=== PATIENT | male | born 1950 | race Caucasian/White ===

== ENCOUNTER 2017-08-26 16:21 | Inpatient (IN) ==
[2017-08-26 17:05] LABS: Basophils % 0.2 %; Hematocrit 48.7 % (37.5-50.1); Hemoglobin 16.2 g/dL (12.9-16.9); Immature Granulocytes % 1.5 % (0-4); Lymphocytes % 7.7 %; Mean Corpuscular HGB Conc 33.3 g/dL (31.6-35.5); Mean Corpuscular Hemoglobin 30.9 pg (28.0-33.3); Mean Corpuscular Volume 92.9 fL (83.0-100.0); Monocytes # 0.1 K/mcL (0.0-1.3); Monocytes % 1.1 %; Neutrophils # 11.6 K/mcL (1.6-8.9); Platelet Count 210 K/mcL (140-400); Red Blood Count 5.24 M/mcL (4.19-5.50); Segmented Neutrophils % 89.5 %
[2017-08-26 17:18] LABS: Calcium 9.5 mg/dL (8.6-10.3); Potassium 4.3 mEq/L (3.5-5.1)
[2017-08-26 17:22] LABS: Troponin I 0.04 ng/mL (< 0.04)
--- NOTE | 2017-08-26 17:32 | Emergency Department Note ---
Disposition Clinical Impression: RONALD (acute kidney injury) Community acquired pneumonia Qualifiers: Laterality: right Lung location: lower lobe of lung Qualified Code(s): J18.1 - Lobar pneumonia, unspecified organism Sepsis Qualifiers: Sepsis type: sepsis due to unspecified organism Qualified Code(s): A41.9 - Sepsis, unspecified organism Disposition: Admitted As Inpatient Condition: Fair Referrals: Yanna Sommer MD [Primary Care Provider] - Forms: ED Satisfaction Letter General Adult HPI - General Chief complaint: ED Shortness of Breath/Dyspnea Stated complaint: flu-like complications Time Seen by Provider: 08/26/17 16:41 Source: patient, family Limitations: no limitations Nursing Notes Reviewed: Yes Vital Signs Reviewed: Yes - History of Present Illness HPI Narrative: 66-year-old male presented to the emergency department complaining of fevers and chills and body aches. Patient states this been going on for about 4 or 5 days. He was seen by primary care physician approximately 3 days ago he did do a flu swab was negative but still sent him home with Tamiflu. Patient states he has not felt any better. His only medical condition he has is that he smokes otherwise does not take any medication. State patient says he is normally one pack-a-day smoker. In the last 5 days is only had 1 cigarette. Said this is very abnormal for him. He is maybe complaining of a cough for the last 2 days but prior to that does not have a cough. He otherwise has no complaints. He said the fever has been 102 and has been being controlled with Tylenol. Last Tylenol he took was at approximately 4:00 PM. They said he has been nauseous but no vomiting. Patient otherwise has no belly pain. He said his whole body just aches. He said he is very cold. It is constantly shaking. Patient has no other complaints including no headaches, blurry vision, neck pain, back pain, chest pain, shortness of breath, abdominal pain, pain with urination, changes in bowel movements, pain or to 90 arms or leg. Pain Scale: 5 - Related Data Home Medications Medication Instructions Recorded Confirmed Acetaminophen [Tylenol] 650 mg PO Q6H PRN 08/26/17 08/26/17 Oseltamivir [Tamiflu] 75 mg PO BID 08/26/17 08/26/17 Allergies Allergy/AdvReac Type Severity Reaction Status Date / Time No Known Allergies Allergy Verified 08/26/17 16:28 Review of Systems: 10 point review of systems done and negative unless otherwise stated in the history of present illness. All systems ED: reviewed and negative except as stated. Review of Systems: As Per HPI Past Medical History - Past Medical History Attestation: Yes The following information was validated with the patient. Source: patient Medical history: Reports: other Surgical history: Reports: no surgical history Psychiatric history: Reports: no psych history - Social History Smoking Status: Current every day smoker Smokeless Tobacco Status: No Alcohol use: Reports: none Drug use: Reports: none Physical Exam - General Limitations: no limitations General appearance: alert, in no apparent distress, other (Patient does have noticeable Rigor's on examination.) - Head Head exam: atraumatic, normocephalic, normal inspection - Eye Eye exam: Present: normal appearance, PERRL, EOMI - ENT ENT exam: normal exam, normal oropharynx, mucous membranes moist - Chest Chest inspection: Present: normal inspection, symmetric chest wall rise - Respiratory Respiratory exam: Present: normal lung sounds bilaterally. Absent: respiratory distress, wheezes, accessory muscle use, prolonged expiratory phase - Cardiovascular Cardiovascular exam: Present: normal rhythm, tachycardia, normal heart sounds - Abdominal Exam Abdominal exam: Present: soft, Non-Tender. Absent: tenderness, distention, guarding, rebound, rigidity - Extremities Exam Extremities exam: Present: normal inspection, full ROM. Absent: tenderness, pedal edema - Expanded Lower Extremity Exam Neurovascular/Tendon exam: Present: normal capillary refill. Absent: pulse deficit, motor deficit, sensory deficit, tendon deficit - Back Exam Back exam: Present: normal inspection, full ROM. Absent: tenderness, CVA tenderness (R), CVA tenderness (L) - Neurological Exam Neurological exam: Present: alert, oriented X3 - Expanded Neurological Exam Coma Scale Eye Opening: Spontaneous Coma Scale Motor Response: Obeys Commands Coma Scale Verbal Response: Oriented Coma Scale Total: 15 - Skin Skin exam: Present: warm, dry, intact, normal color Course Course Narrative: 66-year-old male presented to the emergency department with fever chills and all over not feeling well. He also [place]. We will do chest x-ray, EKG patient does meet surgical criteria so we will go ulcers labs including lactate , CBC, BMP, time and lactate, chest x-ray and EKG. Due to patient also having Reiger's we will get CT of the head to rule out any kind of cranial pathology. We will give patient Motrin for his fever will give him 2 L of IV fluid at the 30 mL/kg to fluid resuscitate him. Patient most likely will be admitted to the hospital. Vital Signs Temperature 98.8 F 08/26/17 16:23 Pulse Rate 113 08/26/17 16:23 Respiratory Rate 22 08/26/17 16:23 Blood Pressure 108/71 08/26/17 16:23 O2 Sat by Pulse Oximetry 96 08/26/17 16:23 Temperature 98.8 F 08/26/17 16:23 Pulse Rate 116 08/26/17 18:29 Respiratory Rate 14 08/26/17 18:29 Blood Pressure 111/73 08/26/17 18:29 O2 Sat by Pulse Oximetry 93 08/26/17 18:29 Oxygen Delivery Oxygen Delivery Room Air Medical Decision Making - MDM Narrative Medical decision making narrative: 66-year-old male presented with fever and chills and body aches. Chest x-ray came back showing most likely pneumonia. We will treat him with Rocephin and Levaquin. Patient's did get 2 L of IV fluids. We did give him Zofran as well as ibuprofen to help with the fever. Patient's nausea is under control with the Zofran. Due to patient needing IV antibiotics and his pneumonia and not feeling well we feel admission IV antibiotics as needed. Patient also does have a new acute kidney injury. We gave him IV fluids which will help with that. We will give him aspirin due to him having an elevated troponin. Patient also has a mild leukocytosis. Although should normalize once his IV antibiotics as well as the fluids. Patient is okay with this plan. I spoke with the hospitalist who agreed to admit the patient to their service. Patient is admitted in stable condition. This documentation is done with the assistance of Dragon dictation. Despite efforts made to ensure accuracy, there may be inaccuracies in air pumper or spelling and typographical errors. I examined this patient and my medical decision-making was reviewed with the Resident Physician. I agree with the documented findings, disposition and treatment plan as described except to the extent set forth below. Patient seen and evaluated by Dr. Taylor and myself, I agree with his evaluation management plan, supervise care the patient's stay. Patient presents today having several days of cough and wheezing and weakness. He said he is not wheezing now these been coughing up a lot of sputum he has had pneumonia in the past along time ago. He is a smoker. He is on Tamiflu those family said both his flu test by his doctors were negative. He is getting some a little bit of alterations in his mental status at times he has no meningeal signs of edema and no scleral icterus. He is coughing here but no wheezing. We will order a chest x-ray antibiotics he meets SIRS criteria and he will need admission. Family is in agreement with this plan. Chest X-Ray 08/26/17 16:29 IMPRESSION: Right lower lobe pneumonia. Follow-up imaging is recommended after treatment to ensure resolution. D/ / Yohannes Sanchez MD / Yohannes Sanchez MD Interpreting Provider: Yohannes Sanchez MD 1754 hrs.: He does have a right lower lobe pneumonia or a start him on antibiotics for the pneumonia and sepsis criteria steroids fluids and admission. Family is in agreement with this plan. 1820 hrs.: Patient has AKA I, his troponins positive these had no chest pain. We will give him aspirin I think that is due to his renal insufficiency. His white count [place] 12,000 status and leukocytosis. Admission was sepsis criteria his lactate elevated he is getting fluids he will be admitted to the hospitalist IV and a bikes or running and he will need a repeat lactate and 4 hours. Patient and his family are updated. Patient's critical care time excluding separately billable procedures is 40 minutes. - Medical Records Medical records reviewed: Yes I reviewed the patient's medical records. - Lab Data Lab results reviewed: Yes I reviewed the patient's lab results. Result diagrams: 08/26/17 16:48 08/26/17 16:48 Lab Results 08/26/17 08/26/17 08/26/17 Range/Units 16:48 16:48 16:48 WBC 12.9 H (4.3-11.1) K/mcL RBC 5.24 (4.19-5.50) M/mcL Hgb 16.2 (12.9-16.9) g/dL Hct 48.7 (37.5-50.1) % MCV 92.9 (83.0-100.0) fL MCH 30.9 (28.0-33.3) pg MCHC 33.3 (31.6-35.5) g/dL RDW 13.0 (11.5-14.5) % Plt Count 210 (140-400) K/mcL MPV 12.0 (9.4-12.4) fL Immature Gran % 1.5 (0-4) % Seg Neutrophils % 89.5 % Lymphocytes % 7.7 % Monocytes % 1.1 % Eosinophils % 0.0 % Basophils % 0.2 % Neutrophils # 11.6 H (1.6-8.9) K/mcL Lymphocytes # 1.0 (0.6-4.6) K/mcL Monocytes # 0.1 (0.0-1.3) K/mcL Eosinophils # 0.0 (0.0-0.6) K/mcL Basophils # 0.0 (0.0-0.2) K/mcL Sodium 130 L (136-145) mEq/L Potassium 4.3 (3.5-5.1) mEq/L Chloride 96 L (98-107) mEq/L Carbon Dioxide 21 L (23-29) mEq/L BUN 42 H (8-23) mg/dL Creatinine 2.28 H (0.70-1.30) mg/dL Est GFR ( Amer) 35 L (> 60) Est GFR (Non-Af Amer) 29 L (> 60) BUN/Creatinine Ratio 18 (6-26) Glucose 137 H (70-105) mg/dL Calculated Osmolality 283 (280-300) Lactic Acid 2.7 H (0.5-2.2) mmol/L Calcium 9.5 (8.6-10.3) mg/dL Troponin I 0.04 H* (< 0.04) ng/mL B-Natriuretic Peptide (Less than 100) pg/mL 08/26/17 Range/Units 16:48 WBC (4.3-11.1) K/mcL RBC (4.19-5.50) M/mcL Hgb (12.9-16.9) g/dL Hct (37.5-50.1) % MCV (83.0-100.0) fL MCH (28.0-33.3) pg MCHC (31.6-35.5) g/dL RDW (11.5-14.5) % Plt Count (140-400) K/mcL MPV (9.4-12.4) fL Immature Gran % (0-4) % Seg Neutrophils % % Lymphocytes % % Monocytes % % Eosinophils % % Basophils % % Neutrophils # (1.6-8.9) K/mcL Lymphocytes # (0.6-4.6) K/mcL Monocytes # (0.0-1.3) K/mcL Eosinophils # (0.0-0.6) K/mcL Basophils # (0.0-0.2) K/mcL Sodium (136-145) mEq/L Potassium (3.5-5.1) mEq/L Chloride (98-107) mEq/L Carbon Dioxide (23-29) mEq/L BUN (8-23) mg/dL Creatinine (0.70-1.30) mg/dL Est GFR ( Amer) (> 60) Est GFR (Non-Af Amer) (> 60) BUN/Creatinine Ratio (6-26) Glucose (70-105) mg/dL Calculated Osmolality (280-300) Lactic Acid (0.5-2.2) mmol/L Calcium (8.6-10.3) mg/dL Troponin I (< 0.04) ng/mL B-Natriuretic Peptide 33 (Less than 100) pg/mL - Radiology Data Radiology results reviewed: Yes I reviewed the patient's radiology results. - EKG Data EKG #1 EKG attestation: Yes I reviewed and interpreted this EKG. EKG results narrative: EKG done at [facility] a review myself and attending shows sinus tachycardia rate of 116, NV interval 142, QRS 83, QTC 357 with a normal axis. There is no acute ST changes no acute T-wave changes no other signs of ischemia. No heartstring, hypertrophy, heart block. No WPW/Brugada syndrome. No old EKG to compare with EKG shows normal: sinus rhythm
[2017-08-26] MEDS ORDERED: Ibuprofen 600 MG TABLET PO ONE (17:34)
[2017-08-26] MEDS ORDERED: 0.9 % Sodium Chloride 1,000 ML IVC ONE ×2 (17:34→17:51)
[2017-08-26] MEDS ORDERED: Ondansetron 4 MG/2 ML VIAL IVP ONE (17:35)
[2017-08-26] MEDS ORDERED: Levofloxacin 750 MG/150 ML 750 MG/150 ML BAG IVPB ONE (17:47)
[2017-08-26] MEDS ORDERED: cefTRIAXone 1,000 MG in Water for inj. (sterile) 20 ML 10 ML IVPB ONE (17:47)
[2017-08-26] MEDS ORDERED: Aspirin 81 MG TAB.CHEW PO ONE (18:34)
[2017-08-26 19:43] LABS: Bilirubin,Urine Moderate (Negative); Blood,Urine Moderate (Negative); Clarity,Urine Turbid (Clear); Glucose,Urine (UA) Normal (Normal); Ketones,Urine Trace mg/dL (Negative); Leukocyte Esterase,Urine Trace (Negative); Nitrite,Urine Negative (Negative); Protein,Urine 100 mg/dL (Neg-Trace); Specific Gravity,Urine > 1.030 (1.010-1.025)
[2017-08-26 19:46] LABS: Bacteria,Urine None Seen per hpf (None-Few); RBC,Urine 0-3 per hpf (0-3); Squamous Epithelial Cell,Urine Many per lpf (None-Few)
[2017-08-26 19:47] LABS: Color,Urine Dark Yellow (Yellow)
[2017-08-26 19:55] LABS: Granular Casts,Urine Moderate per lpf (None Seen)
[2017-08-26] MEDS ORDERED: Naloxone 0.4 MG/ML INJ IVP PRN (20:10)
[2017-08-26] MEDS ORDERED: Ondansetron 4 MG/2 ML VIAL IVP PRN (20:23)
--- NOTE | 2017-08-26 20:31 | Internal Med History&Physical ---
<Shola Allred R - Last Filed: 08/26/17 20:29> Date of Encounter: 08/26/17 Time of Encounter: 19:40 Assessment and Plan (1) Sepsis Status: Acute SIRS criteria: HR 113, RR 22, leukocytosis 12.9. Source of infection RLL pneumonia No hypotension. Lactic acid 2.4. Reported temp at home of 102, tylenol just prior to arrival in ED CXR shows RLL pneumonia. Head CT shows no acute abnormality, mild chronic small vessel disease CBC shows leukocytosis, no anemia. BMP shows hyponatermia (130), metabolic acidosis with low CO2 (21), and elevated Cr (2.28, with baseline around 1.0) UA positive protein, ketones, blood, esterase, 5-15 white blood cells, and granular cast. however, patient does not have any urinary symptoms Repeat flu swab is negative Patient received 2 L normal saline emergency department, and initial doses of Levaquin and Rocephin Will admit to telemetry, continue IV fluids, Levaquin, and Rocephin Blood cultures pending Qualifiers: Sepsis type: sepsis due to unspecified organism Qualified Code(s): A41.9 - Sepsis, unspecified organism (2) Community acquired pneumonia Status: Acute Chest x-ray shows right lower lobe pneumonia Treatment fluids, Levaquin, and Rocephin as above Qualifiers: Laterality: right Lung location: lower lobe of lung Qualified Code(s): J18.1 - Lobar pneumonia, unspecified organism (3) RONALD (acute kidney injury) Status: Acute Creatinine 2.28, with a baseline around 1.0 This is likely secondary to dehydration, will continue IV fluids Avoid nephrotoxic drugs, avoid NSAIDs, renally dose medications as needed Repeat urinalysis and continue to monitor kidney function (4) Hyponatremia Status: Acute Sodium 130, likely secondary to dehydration. Received 2 L normal saline emergency department We will recheck sodium level. Continue IV fluids for now (5) Elevated troponin Status: Acute Troponin 0.04. Patient denies any chest pain ECG shows sinus tachycardia with heart rate of 116, with no ST changes Likely demand ischemia secondary to sepsis and pneumonia We will trend troponins 3 (6) DVT prophylaxis Status: Acute Subcutaneous heparin Internal Medicine - H&P: HPI Chief complaint: flu-like symptoms Admitted From: Emergency Dept History of present illness: Mr. Wang is a 66 year old male with PMH of tobacco use, as the ED with a 4-5 day history of fever, chills, body aches, and generalized weakness. Associated symptoms include a productive cough, diaphoresis, shakiness, nausea, vomiting, and diarrhea. He states that he saw his PCP a couple days ago and flu swab was negative, but was treated with Tamiflu. He reports no improvement on Tamiflu. He reports that his fever has been up to 102 but it has been responding to Tylenol. He denies any headaches, blurred vision, focal weakness, chest pain, dyspnea, orthopnea, pleuritic pain, abdominal pain, back pain, hematochezia, melena, dysuria, increased frequency, hematuria, or leg pain/swelling. Past Med Surg Social Fam HX - Past Medical History Medical history: other (nephrolithiasis) Psychiatric history: no psych history - Past Surgical History Surgical History: orthopedic, other - Social History Smoking Status: Current every day smoker Smokeless Tobacco Status: No Alcohol use: none Drug use: none - Family History Mother Living Status: Hx Family Cancer: Yes (stomach cancer) Father Living Status: Hx Family Cardiac Disorders: Yes Internal Medicine - H&P: Meds Acetaminophen [Tylenol] 650 mg PO Q6H PRN 08/26/17 [History] Cyanocobalamin (Vitamin B-12) [Vitamin B12] 1,000 mcg PO DAILY #10 tablet [Rx] GuaiFENesin ER [Mucinex] 600 mg PO BID PRN #20 tbbp.12hr 08/31/17 [Rx] levoFLOXacin [Levaquin] 750 mg PO DAILY #6 tablet 08/31/17 [Rx] 3 Allergy/AdvReac Type Severity Reaction Status Date / Time No Known Allergies Allergy Verified 08/26/17 16:28 All Systems PM: A 10-system review of systems was performed and is negative for pertinent findings except as documented above in the HPI. - Constitutional Vitals: Temp Pulse Resp BP Pulse Ox 98.9 F 69 21 108/69 95 08/26/17 20:12 08/26/17 20:12 08/26/17 20:12 08/26/17 20:12 08/26/17 20:12 General appearance: Present: mild distress, A&O X 3, answers questions appropriately - Head Head exam: Present: atraumatic, normocephalic - Eye Eye exam: Present: EOMI, PERRL, conjuntiva pink, sclera anicteric Pupils: Present: PERRL - ENT ENT exam: Present: mucous membranes dry - Neck Neck exam general surgery: Present: supple, trachea midline. Absent: lymphadenopathy - Respiratory Respiratory exam: Present: CTAB. Absent: accessory muscle use, rales, rhonchi, wheezes - Cardiovascular Cardiovascular exam: Present: +S1, +S2, tachycardia (regular rhythm). Absent: diastolic murmur, systolic murmur - GI/Abdominal GI/Abdominal exam: Present: normal bowel sounds, soft, no peritoneal signs. Absent: distended, tenderness - Extremities Exam Extremities exam: Present: normal capillary refill, warm, radial pulses palpable and symmetrical. Absent: calf tenderness, cyanotic, pedal edema - Neurological Exam Neurological exam: Present: CN II-XII intact, oriented X3, no focal deficits. Absent: facial droop, speech deficit - Skin Skin exam: Present: diaphoretic, intact Internal Med - H&P Results - Labs CBC & Chem 7: 08/26/17 16:48 08/26/17 16:48 <Mackenzie Dodd Z - Last Filed: 09/16/17 04:35> Date of Encounter: 08/29/17 Internal Medicine - H&P: HPI History of present illness: Mr. Wang is a 66 year old male All Systems PM: A 10-system review of systems was performed and is negative for pertinent findings except as documented above in the HPI. - Constitutional Vitals: Temp Pulse Resp BP Pulse Ox 98.5 F 81 16 136/76 95 08/31/17 07:16 08/31/17 07:16 08/31/17 07:33 08/31/17 07:16 08/31/17 08:15 Internal Med - H&P Results - Labs CBC & Chem 7: 08/31/17 03:15 08/31/17 03:15 - Attending Attestation I personally and independently interviewed and examined the patient, and I reviewed the patient's medical record. I am in agreement with the residents assessment and proposed treatment plan. I discussed my findings and recommendation with the patient and answer his questions. The patient's medical records were edited to accurately reflect this encounter.
[2017-08-26] MEDS: Ipratropium/Albuterol Neb 3 ML IH SCH (21:12)
[2017-08-26] MEDS: *HR* Heparin 5,000 UNIT/ML VIAL SQ SCH (22:10)
[2017-08-26] MEDS: 0.9 % Sodium Chloride 1,000 ML IVC SCH (22:11)
[2017-08-26 22:19] LABS: Sodium 130 mEq/L (136-145)
[2017-08-26 22:20] LABS: Troponin I < 0.03 ng/mL (< 0.04)
[2017-08-27] MEDS: traMADol 50 MG TABLET PO PRN ×2 (03:35→15:48)
[2017-08-27] MEDS: Ipratropium/Albuterol Neb 3 ML IH SCH ×3 (04:23→15:39)
[2017-08-27] MEDS: *HR* Heparin 5,000 UNIT/ML VIAL SQ SCH ×3 (05:56→21:08)
[2017-08-27 06:19] LABS: Basophils % 0.3 %; Hematocrit 39.6 % (37.5-50.1); Immature Granulocytes % 1.8 % (0-4); Lymphocytes # 0.8 K/mcL (0.6-4.6); Lymphocytes % 9.9 %; Mean Corpuscular HGB Conc 33.3 g/dL (31.6-35.5); Mean Corpuscular Hemoglobin 30.8 pg (28.0-33.3); Mean Corpuscular Volume 92.3 fL (83.0-100.0); Mean Platelet Volume 12.3 fL (9.4-12.4); Monocytes # 0.1 K/mcL (0.0-1.3); Monocytes % 1.7 %; Neutrophils # 6.8 K/mcL (1.6-8.9); Platelet Count 174 K/mcL (140-400); Red Blood Count 4.29 M/mcL (4.19-5.50); Red Cell Distribution Width 13.2 % (11.5-14.5); Segmented Neutrophils % 86.3 %
[2017-08-27 06:24] LABS: Hemoglobin 13.2 g/dL (12.9-16.9)
[2017-08-27 06:28] LABS: INR 1.1; Prothrombin Time 12.2 Seconds (9.4-12.1)
[2017-08-27 06:31] LABS: Activated Partial Thrombo Time 33.3 Seconds (26.0-36.0)
[2017-08-27 06:36] LABS: Troponin I 0.03 ng/mL (< 0.04)
[2017-08-27 06:39] LABS: Albumin 2.8 g/dL (3.5-5.7); Albumin/Globulin Ratio 0.8 (1.1-2.2); Bilirubin,Direct 0.3 mg/dL (0.0-0.2); Bilirubin,Indirect 0.3 mg/dL (0.0-1.2); Bilirubin,Total 0.6 mg/dL (0.3-1.0); Globulin 3.3 g/dL (2.4-3.5); Potassium 3.8 mEq/L (3.5-5.1); Total Protein 6.1 g/dL (6.4-8.9)
[2017-08-27 06:45] LABS: Platelet Estimate Normal (Normal)
[2017-08-27] MEDS: Acetaminophen 325 MG TABLET PO PRN ×2 (07:34→21:08)
[2017-08-27] MEDS: 0.9 % Sodium Chloride 1,000 ML IVC SCH ×2 (07:35→21:39)
[2017-08-27 08:05] LABS: Bilirubin,Urine Negative (Negative); Blood,Urine Moderate (Negative); Color,Urine Yellow (Yellow); Glucose,Urine (UA) Normal (Normal); Ketones,Urine 40 mg/dL (Negative); Leukocyte Esterase,Urine Negative (Negative); Nitrite,Urine Negative (Negative); Protein,Urine 100 mg/dL (Neg-Trace); Specific Gravity,Urine 1.026 (1.010-1.025); Urobilinogen,Urine Normal (Normal)
[2017-08-27 08:07] LABS: Hyaline Casts,Urine None Seen per lpf (None-Few); Squamous Epithelial Cell,Urine Many per lpf (None-Few)
[2017-08-27 08:09] LABS: Clarity,Urine Clear (Clear)
[2017-08-27] MEDS ORDERED: Ipratropium/Albuterol Neb 3 ML IH ONE (08:13)
[2017-08-27] MEDS ORDERED: 0.9 % Sodium Chloride 250 ML ONE (08:16)
[2017-08-27] MEDS ORDERED: Levalbuterol Neb 1.25 MG/3 ML ONE (08:18)
[2017-08-27] MEDS ORDERED: Levalbuterol Neb 1.25 MG/3 ML IH ONE (08:19)
[2017-08-27] MEDS ORDERED: Levalbuterol Neb 0.63 MG/3 ML IH ONE (08:19)
[2017-08-27] MEDS ORDERED: 0.9 % Sodium Chloride 250 ML IVC ONE (08:24)
[2017-08-27 08:26] LABS: Bacteria,Urine Few per hpf (None-Few)
[2017-08-27] MEDS ORDERED: Ketorolac 30 MG/ML VIAL IVP ONE (08:26)
[2017-08-27] MEDS ORDERED: 0.9 % Sodium Chloride 500 ML IVC ONE (09:20)
[2017-08-27] MEDS ORDERED: 0.9 % Sodium Chloride 500 ML ONE (09:21)
[2017-08-27] MEDS: cefTRIAXone 2,000 MG in Water for inj. (sterile) 20 ML 20 ML IVP SCH (17:19)
[2017-08-27] MEDS ORDERED: Levofloxacin 750 MG/150 ML 750 MG/150 ML BAG IVPB SCH (19:00)
--- NOTE | 2017-08-27 19:03 | Internal Med Progress Note ---
Date of Encounter: 08/27/17 Time of Encounter: 08:10 - Assessment and plan (1) RONALD (acute kidney injury) Current Visit: Yes Status: Acute Assessment and plan: Renal function is improving, creatinine is 1.78, GFR is 39 Continue to avoid nephrotoxins. (2) Community acquired pneumonia Current Visit: Yes Status: Acute Assessment and plan: Pt reports not feeling well for almost a week with decreased po intake and activity. Pt with sepsis criteria with leukocytosis, fever, tachycardia. Continue IV Levaquin, Rocephin, bronchodilators. Continue telemetry Chest X-Ray 08/26/17 16:29 IMPRESSION: Right lower lobe pneumonia. Follow-up imaging is recommended after treatment to ensure resolution. D/ / Yohannes Sanchez MD / Yohannes Sanchez MD Interpreting Provider: Yohannes Sanchez MD Qualifiers: Laterality: right Lung location: lower lobe of lung Qualified Code(s): J18.1 - Lobar pneumonia, unspecified organism (3) DVT prophylaxis Current Visit: Yes Status: Acute Assessment and plan: Heparin (4) Elevated troponin Current Visit: Yes Status: Acute Assessment and plan: Troponin mildly elevated at 0.04, flat and adynamic elevation in the setting of demand ischemia secondary to sepsis and pneumonia. Repeat troponin today 0.03. EKG obtained this morning, showed SVT without any ST changes. Continue telemetry. (5) Hyponatremia Current Visit: Yes Status: Acute Assessment and plan: Continues to improve. Sediments 133 today. Continue to monitor (6) Sepsis Current Visit: Yes Status: Acute Assessment and plan: Patient meets sepsis criteria with leukocytosis, tachycardia, source of infection is pneumonia, fevers. Lactic was initially elevated, has returned to 0.8. Continue to treat with antibiotics and fluid resuscitation as neede Tylenol for fever. Qualifiers: Sepsis type: sepsis due to unspecified organism Qualified Code(s): A41.9 - Sepsis, unspecified organism - Subjective Interval history: Pt was initially seen and evaluated at bedside today by request of primary RN. Pt was diaphoretic, shaking, and nurse reported that he was "struggling to breathe." I evaluated the patient at the bedside, he was diaphoretic, reported some mild chest pain, he was tachycardic, and had a strong odor of ketones around him. He was given a 1 L fluid bolus, his lungs were clear, he did not appear to be in respiratory distress. We did a stat EKG showed sinus tachycardia, repeat troponin was 0.03, patient had an axillary temperature of 102.8, he was eating ice at the time. He appeared to calm down and his condition improved. I visited his room 3-4 other times, the last time again at the request of the primary nurse. I spoke with his family twice, answered their questions. The last time it is in the room, I was called by the primary nursing patient shaking uncontrollably his lips were trembling and again he was struggling. When I reached the room he was shaking, but was able to converse. He states he does not know why this happens, it just comes and goes. His vitals were stable at this time and again all the symptoms subsided. He denied any headache or chest pain, shortness of breath. He denies any continued diaphoresis, rigors were observed, he denies chills or fever. - Constitutional Vitals: Temp Pulse Resp BP Pulse Ox 100.1 F H 109 16 145/82 95 08/27/17 18:26 08/27/17 18:26 08/27/17 18:26 08/27/17 18:26 08/27/17 18:26 General appearance: Present: cooperative, mild distress, A&O X 3, pleasant, no acute distress, answers questions appropriately - Head Head exam: Present: atraumatic, normal inspection, normocephalic - Eye Eye exam: Present: normal appearance, conjuntiva pink, sclera anicteric - Neck Neck exam general surgery: Present: normal inspection, supple, trachea midline. Absent: lymphadenopathy, tenderness - Respiratory Respiratory exam: Present: CTAB. Absent: accessory muscle use, chest wall tenderness, rales, respiratory distress, rhonchi, wheezes - Cardiovascular Cardiovascular exam: Present: RRR, +S1, +S2, tachycardia. Absent: bradycardia, diastolic murmur, gallop, rubs, systolic murmur - GI/Abdominal GI/Abdominal exam: Present: normal bowel sounds, soft, no peritoneal signs. Absent: distended, hepatomegaly, tenderness - Extremities Exam Extremities exam: Present: normal capillary refill, normal inspection, warm, radial pulses palpable and symmetrical. Absent: calf tenderness, cyanotic, pedal edema, tenderness - Neurological Exam Neurological exam: Present: alert, oriented X3, no focal deficits. Absent: facial droop, speech deficit - Skin Skin exam: Present: dry, intact, normal color, warm. Absent: rash Internal Medicine: Result - Labs CBC & Chem 7: 08/27/17 04:42 08/27/17 04:42 Labs: Short CBC 08/27/17 Range/Units 04:42 WBC 7.9 (4.3-11.1) K/mcL Hgb 13.2 D (12.9-16.9) g/dL Hct 39.6 (37.5-50.1) % Plt Count 174 (140-400) K/mcL Neutrophils # 6.8 (1.6-8.9) K/mcL BMP 08/26/17 08/27/17 21:50 04:42 Sodium 130 L 133 L Potassium 3.8 Chloride 105 Carbon Dioxide 16 L BUN 45 H Creatinine 1.78 H Glucose 103 Calcium 8.0 L Cardiac Enzymes 08/26/17 08/27/17 08/27/17 Range/Units 21:50 04:42 08:29 Troponin I < 0.03 0.03 0.03 (< 0.04) ng/mL Liver Function 08/27/17 Range/Units 04:42 Total Bilirubin 0.6 (0.3-1.0) mg/dL Direct Bilirubin 0.3 H (0.0-0.2) mg/dL AST 87 H (13-39) Units/L ALT 35 (7-52) Units/L Alkaline Phosphatase 59 (34-104) Units/L Albumin 2.8 L (3.5-5.7) g/dL Urine 08/27/17 Range/Units 07:30 Urine Color Yellow (Yellow) Urine Clarity Clear (Clear) Urine pH 6.0 (5.0-8.0) pH Units Ur Specific [place] 1.026 H (1.010-1.025) Urine Protein 100 H (Neg-Trace) mg/dL Urine Glucose (UA) Normal (Normal) mg/dL - ABG Interpretation ABG results: PT/INR, D-dimer PT 12.2 Seconds (9.4-12.1) H 08/27/17 04:42 Consult Discharge Plan - Plan Referrals: Yanna Sommer MD [Primary Care Provider] - 09/06/17 3:00 pm
[2017-08-27] MEDS ORDERED: hydrOXYzine pamoate 25 MG CAPSULE PO PRN (19:09)
[2017-08-27] MEDS: Levalbuterol Neb 1.25 MG/3 ML IH SCH (22:18)
[2017-08-28 01:41] LABS: Basophils % 0.4 %; Hematocrit 34.4 % (37.5-50.1); Immature Granulocytes % 2.6 % (0-4); Lymphocytes # 1.8 K/mcL (0.6-4.6); Lymphocytes % 21.5 %; Mean Corpuscular HGB Conc 33.7 g/dL (31.6-35.5); Mean Corpuscular Hemoglobin 31.5 pg (28.0-33.3); Mean Corpuscular Volume 93.5 fL (83.0-100.0); Mean Platelet Volume 11.4 fL (9.4-12.4); Monocytes # 0.3 K/mcL (0.0-1.3); Monocytes % 3.4 %; Neutrophils # 6.1 K/mcL (1.6-8.9); Platelet Count 183 K/mcL (140-400); Red Blood Count 3.68 M/mcL (4.19-5.50); Red Cell Distribution Width 13.5 % (11.5-14.5); Segmented Neutrophils % 72.1 %
[2017-08-28 01:42] LABS: Hemoglobin 11.6 g/dL (12.9-16.9)
[2017-08-28 01:55] LABS: BUN/Creatinine Ratio 19 (6-26); Blood Urea Nitrogen 24 mg/dL (8-23); Calcium 8.2 mg/dL (8.6-10.3); Carbon Dioxide 18 mEq/L (23-29); Chloride 107 mEq/L (98-107); Glucose 138 mg/dL (70-105); Osmolality,Calculated 282 (280-300); Potassium 3.8 mEq/L (3.5-5.1); Sodium 133 mEq/L (136-145); eGFR For African Americans > 60 (> 60); eGFR For Non-African Americans 59 (> 60)
[2017-08-28 02:29] LABS: Burr Cells 1+ (Not Present); Platelet Estimate Normal (Normal); Poikilocytosis 1+ (Not Present)
[2017-08-28] MEDS: Acetaminophen 325 MG TABLET PO PRN ×3 (03:07→18:31)
[2017-08-28] MEDS: Levalbuterol Neb 1.25 MG/3 ML IH SCH ×3 (04:12→15:59)
[2017-08-28] MEDS: *HR* Heparin 5,000 UNIT/ML VIAL SQ SCH ×3 (05:56→22:04)
--- NOTE | 2017-08-28 06:36 | Electrocardiograph Report ---
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
[2017-08-28] MEDS: 0.9 % Sodium Chloride 1,000 ML IVC SCH ×3 (07:54→23:34)
--- NOTE | 2017-08-28 08:02 | Electrocardiograph Report ---
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
--- NOTE | 2017-08-28 17:20 | Internal Med Progress Note ---
Date of Encounter: 08/28/17 Time of Encounter: 08:40 - Assessment and plan (1) RONALD (acute kidney injury) Current Visit: Yes Status: Resolved Assessment and plan: Renal function is improving, creatinine is 1.24, GFR is 59 Continue to avoid nephrotoxins. Continue gentle IV fluid hydration as needed. Resolved (2) Community acquired pneumonia Current Visit: Yes Status: Acute Assessment and plan: Pt states that he feels some better today. No episodes of rigors, chills, shaking. Patient continues to have intermittent, low-grade fevers. Pt with sepsis criteria with leukocytosis, fever, tachycardia. Continue IV Levaquin, Rocephin, bronchodilators. Continue telemetry Chest X-Ray 08/26/17 16:29 IMPRESSION: Right lower lobe pneumonia. Follow-up imaging is recommended after treatment to ensure resolution. D/ / Yohannes Sanchez MD / Yohannes Sanchez MD Interpreting Provider: Yohannes Sanchez MD Qualifiers: Laterality: right Lung location: lower lobe of lung Qualified Code(s): J18.1 - Lobar pneumonia, unspecified organism (3) DVT prophylaxis Current Visit: Yes Status: Acute Assessment and plan: Heparin subcutaneous twice a day. (4) Elevated troponin Current Visit: Yes Status: Resolved (5) Hyponatremia Current Visit: Yes Status: Acute Assessment and plan: Continues to improve. Sodium 133 today. Continue to monitor (6) Sepsis Current Visit: Yes Status: Acute Assessment and plan: Patient meets sepsis criteria with tachycardia, source of infection is pneumonia , fevers. Lactic was initially elevated, has returned to 0.8. Continue to treat with antibiotics and fluid resuscitation as needed Tylenol for fever. Qualifiers: Sepsis type: sepsis due to unspecified organism Qualified Code(s): A41.9 - Sepsis, unspecified organism - Time Spent With Patient less than 15 minutes - Subjective Interval history: Pt was initially seen and evaluated at bedside today by request of primary RN. Pt was diaphoretic, shaking, and nurse reported that he was "struggling to breathe." I evaluated the patient at the bedside, he was diaphoretic, reported some mild chest pain, he was tachycardic, and had a strong odor of ketones around him. He was given a 1 L fluid bolus, his lungs were clear, he did not appear to be in respiratory distress. We did a stat EKG showed sinus tachycardia, repeat troponin was 0.03, patient had an axillary temperature of 102.8, he was eating ice at the time. He appeared to calm down and his condition improved. I visited his room 3-4 other times, the last time again at the request of the primary nurse. I spoke with his family twice, answered their questions. The last time it is in the room, I was called by the primary nursing patient shaking uncontrollably his lips were trembling and again he was struggling. When I reached the room he was shaking, but was able to converse. He states he does not know why this happens, it just comes and goes. His vitals were stable at this time and again all the symptoms subsided. He denied any headache or chest pain, shortness of breath. He denies any continued diaphoresis, rigors were observed, he denies chills or fever. - Constitutional Vitals: Temp Pulse Resp BP Pulse Ox 99.6 F 89 20 131/75 98 08/28/17 15:28 08/28/17 15:28 08/28/17 16:00 08/28/17 15:28 08/28/17 16:00 General appearance: Present: cooperative, mild distress, A&O X 3, pleasant, no acute distress, answers questions appropriately - Head Head exam: Present: atraumatic, normal inspection, normocephalic - Eye Eye exam: Present: conjuntiva pink, sclera anicteric - Neck Neck exam general surgery: Present: supple, trachea midline. Absent: lymphadenopathy, tenderness - Respiratory Respiratory exam: Present: decreased breath sounds, CTAB. Absent: accessory muscle use, chest wall tenderness, rales, respiratory distress, rhonchi, wheezes - Cardiovascular Cardiovascular exam: Present: RRR, +S1, +S2. Absent: diastolic murmur, gallop, rubs, systolic murmur - GI/Abdominal GI/Abdominal exam: Present: normal bowel sounds, soft, tenderness. Absent: distended, hepatomegaly Additional comments: Tenderness to palpation lower abdomen. Patient states that it is from coughing - Extremities Exam Extremities exam: Present: normal capillary refill, normal inspection, warm, radial pulses palpable and symmetrical. Absent: calf tenderness, cyanotic, pedal edema, tenderness - Neurological Exam Neurological exam: Present: alert, oriented X3, no focal deficits. Absent: facial droop, speech deficit - Skin Skin exam: Present: dry, intact, normal color, warm. Absent: rash Internal Medicine: Result - Labs CBC & Chem 7: 08/28/17 01:26 08/28/17 01:26 Labs: Short CBC 08/28/17 Range/Units 01:26 WBC 8.5 (4.3-11.1) K/mcL Hgb 11.6 L D (12.9-16.9) g/dL Hct 34.4 L (37.5-50.1) % Plt Count 183 (140-400) K/mcL Neutrophils # 6.1 (1.6-8.9) K/mcL BMP 08/28/17 01:26 Sodium 133 L Potassium 3.8 Chloride 107 Carbon Dioxide 18 L BUN 24 H Creatinine 1.24 Glucose 138 H Calcium 8.2 L - ABG Interpretation ABG results: PT/INR, D-dimer PT 12.2 Seconds (9.4-12.1) H 08/27/17 04:42 Consult Discharge Plan - Plan Referrals: Yanna Sommer MD [Primary Care Provider] - 09/06/17 3:00 pm
[2017-08-28] MEDS: Levofloxacin 750 MG/150 ML 750 MG/150 ML BAG IVPB SCH (18:32)
[2017-08-28] MEDS: cefTRIAXone 2,000 MG in Water for inj. (sterile) 20 ML 20 ML IVP SCH (18:32)
[2017-08-28] MEDS ORDERED: Levofloxacin 750 MG/150 ML 750 MG/150 ML BAG IVPB SCH (19:00)
[2017-08-28] MEDS ORDERED: Ipratropium/Albuterol Neb 3 ML ONE (20:20)
[2017-08-28] MEDS: Ipratropium/Albuterol Neb 3 ML IH SCH ×2 (22:54→23:35)
[2017-08-29] MEDS: Acetaminophen 325 MG TABLET PO PRN (01:24)
[2017-08-29] MEDS: Ipratropium/Albuterol Neb 3 ML IH SCH ×6 (03:27→23:56)
[2017-08-29 04:51] LABS: Basophils % 0.3 %; Eosinophils % 0.4 %; Hematocrit 32.7 % (37.5-50.1); Immature Granulocytes % 2.2 % (0-4); Lymphocytes # 2.2 K/mcL (0.6-4.6); Lymphocytes % 24.4 %; Mean Corpuscular HGB Conc 33.6 g/dL (31.6-35.5); Mean Corpuscular Hemoglobin 31.2 pg (28.0-33.3); Mean Corpuscular Volume 92.6 fL (83.0-100.0); Mean Platelet Volume 11.1 fL (9.4-12.4); Monocytes # 0.6 K/mcL (0.0-1.3); Monocytes % 6.1 %; Neutrophils # 6.1 K/mcL (1.6-8.9); Platelet Count 179 K/mcL (140-400); Red Blood Count 3.53 M/mcL (4.19-5.50); Red Cell Distribution Width 14.1 % (11.5-14.5); Segmented Neutrophils % 66.6 %
[2017-08-29] MEDS: *HR* Heparin 5,000 UNIT/ML VIAL SQ SCH ×3 (05:05→21:07)
[2017-08-29 05:06] LABS: BUN/Creatinine Ratio 16 (6-26); Blood Urea Nitrogen 16 mg/dL (8-23); Calcium 8.2 mg/dL (8.6-10.3); Carbon Dioxide 20 mEq/L (23-29); Chloride 108 mEq/L (98-107); Glucose 116 mg/dL (70-105); Osmolality,Calculated 282 (280-300); Potassium 3.6 mEq/L (3.5-5.1); Sodium 135 mEq/L (136-145); eGFR For African Americans > 60 (> 60); eGFR For Non-African Americans > 60 (> 60)
[2017-08-29 09:15] LABS: Adenovirus Not Detected (Not Detect); Bordetella Pertussis Not Detected (Not Detect); Chlamydophila pneumoniae Not Detected (Not Detect); Coronavirus 229E Not Detected (Not Detect); Coronavirus HKU1 Not Detected (Not Detect); Coronavirus NL63 Not Detected (Not Detect); Coronavirus OC43 Not Detected (Not Detect); Human Metapneumovirus Not Detected (Not Detect); Human Rhinovirus/Enterovirus Not Detected (Not Detect); Influenza A Subtype 2009 H1 Not Detected (Not Detect); Influenza A Untypeable Not Detected (Not Detect); Influenza B Not Detected (Not Detect); Mycoplasma pneumoniae Not Detected (Not Detect); Parainfluenza Virus 1 Not Detected (Not Detect); Parainfluenza Virus 2 Not Detected (Not Detect); Parainfluenza Virus 3 Not Detected (Not Detect); Parainfluenza Virus 4 Not Detected (Not Detect); Respiratory Syncytial Virus Not Detected (Not Detect)
[2017-08-29] MEDS: 0.9 % Sodium Chloride 1,000 ML IVC SCH (09:48)
[2017-08-29 12:34] LABS: % Iron Saturation 9 % (20-55); Ferritin > 1350 ng/ml (20-250); Iron 14 mcg/dL (65-175); Transferrin 116 mg/dL (203-362)
[2017-08-29 12:40] LABS: Folate 12.1 ng/mL (3.0-16.0)
[2017-08-29 13:51] LABS: Bilirubin,Urine Negative (Negative); Blood,Urine Negative (Negative); Clarity,Urine Clear (Clear); Color,Urine Yellow (Yellow); Glucose,Urine (UA) Normal (Normal); Ketones,Urine Negative (Negative); Leukocyte Esterase,Urine Negative (Negative); Nitrite,Urine Negative (Negative); Protein,Urine 30 mg/dL (Neg-Trace); Specific Gravity,Urine 1.028 (1.010-1.025); Urobilinogen,Urine Normal (Normal)
[2017-08-29 13:53] LABS: Hyaline Casts,Urine None Seen per lpf (None-Few)
[2017-08-29 14:20] LABS: Squamous Epithelial Cell,Urine Few per lpf (None-Few)
[2017-08-29 14:21] LABS: Bacteria,Urine Few per hpf (None-Few); RBC,Urine 0-3 per hpf (0-3)
--- NOTE | 2017-08-29 16:44 | Internal Med Progress Note ---
Date of Encounter: 08/29/17 Time of Encounter: 09:05 - Assessment and plan (1) Community acquired pneumonia Current Visit: Yes Status: Acute Assessment and plan: Pt states that he feels some better today. Patient continues to have intermittent, low-grade fevers, those, too are decreasing. Sepsis has resolved, pt has no leukocytosis or tachycardia. Intermittent fevers remain. Respiratory infectious panel negative. Continue IV Levaquin, Rocephin, bronchodilators. Continue telemetry Chest X-Ray 08/26/17 16:29 IMPRESSION: Right lower lobe pneumonia. Follow-up imaging is recommended after treatment to ensure resolution. D/ / Yohannes Sanchez MD / Yohannes Sanchez MD Interpreting Provider: Yohannes Sanchez MD Qualifiers: Laterality: right Lung location: lower lobe of lung Qualified Code(s): J18.1 - Lobar pneumonia, unspecified organism (2) DVT prophylaxis Current Visit: Yes Status: Acute Assessment and plan: Heparin subcutaneous twice a day. (3) Hyponatremia Current Visit: Yes Status: Acute Assessment and plan: Improving. Sodium 135 today. Continue to monitor (4) Sepsis Current Visit: Yes Status: Acute Assessment and plan: Resolved. No leukocytosis, tachycardia, or hypotension. Intermittent, low-grade fevers remain. Qualifiers: Sepsis type: sepsis due to unspecified organism Qualified Code(s): A41.9 - Sepsis, unspecified organism (5) RONALD (acute kidney injury) Current Visit: Yes Status: Resolved Assessment and plan: Renal function has returned to baseline, creatinine is 0.98, GFR is >60. Continue to avoid nephrotoxins. Continue gentle IV fluid hydration as needed. Resolved (6) Elevated troponin Current Visit: Yes Status: Resolved Assessment and plan: Resolved. Flat and adynamic elevation in the setting of sepsis and pneumonia. - Time Spent With Patient less than 15 minutes - Subjective Interval history: Pt was seen and assessed at bedside at 0905. He states that he is starting to feel some better and ate more for breakfast than he had in days. He reports feeling very tired, states that he did not sleep well. He denies any headache or chest pain, shortness of breath. He denies diaphoresis, rigors, chills or fever. - Constitutional Vitals: Temp Pulse Resp BP Pulse Ox 99.6 F 89 18 128/80 96 08/29/17 16:23 08/29/17 16:23 08/29/17 16:23 08/29/17 16:23 08/29/17 16:23 General appearance: Present: cooperative, mild distress, A&O X 3, pleasant, no acute distress, answers questions appropriately - Head Head exam: Present: atraumatic, normal inspection, normocephalic - Eye Eye exam: Present: conjuntiva pink, sclera anicteric - Neck Neck exam general surgery: Present: supple, trachea midline. Absent: lymphadenopathy, tenderness - Respiratory Respiratory exam: Present: CTAB. Absent: accessory muscle use, rales, rhonchi, wheezes - Cardiovascular Cardiovascular exam: Present: RRR, +S1, +S2. Absent: diastolic murmur, gallop, rubs, systolic murmur - GI/Abdominal GI/Abdominal exam: Present: normal bowel sounds, soft. Absent: distended, hepatomegaly, tenderness - Extremities Exam Extremities exam: Present: normal capillary refill, normal inspection, warm, radial pulses palpable and symmetrical. Absent: calf tenderness, cyanotic, pedal edema, tenderness - Neurological Exam Neurological exam: Present: alert, oriented X3, no focal deficits. Absent: altered, facial droop, speech deficit - Skin Skin exam: Present: dry, intact, normal color, warm. Absent: rash Internal Medicine: Result - Labs CBC & Chem 7: 08/29/17 04:12 08/29/17 04:12 Labs: Short CBC 08/29/17 Range/Units 04:12 WBC 9.1 (4.3-11.1) K/mcL Hgb 11.0 L (12.9-16.9) g/dL Hct 32.7 L (37.5-50.1) % Plt Count 179 (140-400) K/mcL Neutrophils # 6.1 (1.6-8.9) K/mcL BMP 08/29/17 04:12 Sodium 135 L Potassium 3.6 Chloride 108 H Carbon Dioxide 20 L BUN 16 Creatinine 0.98 Glucose 116 H Calcium 8.2 L Urine 08/29/17 Range/Units 13:40 Urine Color Yellow (Yellow) Urine Clarity Clear (Clear) Urine pH 6.0 (5.0-8.0) pH Units Ur Specific [place] 1.028 H (1.010-1.025) Urine Protein 30 H (Neg-Trace) mg/dL Urine Glucose (UA) Normal (Normal) mg/dL - ABG Interpretation ABG results: PT/INR, D-dimer PT 12.2 Seconds (9.4-12.1) H 08/27/17 04:42 - Impressions Impressions Echocardiogram 08/28/17 07:36 Impressions: LVEF 55%. Normal LV chamber size, wall thickness and function. Moderate left ventricular diastolic dysfunction. Normal right ventricular structure and function. No evidence of a PFO with agitated saline contrast. No evidence of pulmonary hypertension. Left Ventricular Wall Motion: Rest Echo Findings All wall segments showed normal motion. Findings: Study Quality * Technically adequate exam. ECG Findings * Normal sinus rhythm. Left Ventricle * LVEF 55%. * Normal LV chamber size, wall thickness and function. * Moderate left ventricular diastolic dysfunction. Right Ventricle * Normal right ventricular structure and function. Left Atrium * Mildly dilated left atrium. Right Atrium * Mildly dilated right atrium. Interatrial Septum * No evidence of a PFO with agitated saline contrast. Aortic Valve * Trileaflet aortic valve with normal function. * No aortic regurgitation. * No aortic stenosis. Mitral Valve * Normal mitral valve structure and function. * No mitral stenosis. * Trace mitral regurgitation. Tricuspid Valve * Normal tricuspid valve structure and function. * Trace tricuspid regurgitation. * No evidence of pulmonary hypertension. Pulmonic Valve * Normal pulmonic valve structure and function. * No pulmonic regurgitation. Aorta * Normally sized aortic root. Pericardium * The pericardium appears normal. IVC * Normal IVC dimensions and inspiratory collapse. Pulmonary Artery * Normal visualized portions of the main pulmonary artery. Consult Discharge Plan - Plan Referrals: Yanna Sommer MD [Primary Care Provider] - 09/06/17 3:00 pm
--- NOTE | 2017-08-29 16:49 | Electrocardiograph Report ---
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
[2017-08-29] MEDS: cefTRIAXone 2,000 MG in Water for inj. (sterile) 20 ML 20 ML IVP SCH (17:45)
[2017-08-29] MEDS: Levofloxacin 750 MG/150 ML 750 MG/150 ML BAG IVPB SCH (17:45)
[2017-08-29] MEDS: Cyanocobalamin (B-12) 1,000 MCG TABLET PO SCH (17:45)
[2017-08-30] MEDS: 0.9 % Sodium Chloride 1,000 ML IVC SCH ×3 (00:06→11:02)
[2017-08-30] MEDS: 0.9 % Sodium Chloride 250 ML IVC SCH ×2 (00:57→00:58)
[2017-08-30] MEDS: Levalbuterol Neb 1.25 MG/3 ML IH SCH ×4 (03:33→19:35)
[2017-08-30] MEDS: Ipratropium/Albuterol Neb 3 ML IH SCH ×6 (03:33→23:44)
[2017-08-30 05:35] LABS: Basophils % 0.2 %; Eosinophils # 0.2 K/mcL (0.0-0.6); Eosinophils % 1.6 %; Hematocrit 32.2 % (37.5-50.1); Hemoglobin 10.8 g/dL (12.9-16.9); Lymphocytes # 2.7 K/mcL (0.6-4.6); Lymphocytes % 29.1 %; Mean Corpuscular HGB Conc 33.5 g/dL (31.6-35.5); Mean Corpuscular Hemoglobin 31.1 pg (28.0-33.3); Mean Corpuscular Volume 92.8 fL (83.0-100.0); Mean Platelet Volume 11.4 fL (9.4-12.4); Monocytes # 0.7 K/mcL (0.0-1.3); Monocytes % 7.2 %; Neutrophils # 5.5 K/mcL (1.6-8.9); Platelet Count 210 K/mcL (140-400); Red Blood Count 3.47 M/mcL (4.19-5.50); Red Cell Distribution Width 13.8 % (11.5-14.5); Segmented Neutrophils % 59.9 %
[2017-08-30] MEDS: *HR* Heparin 5,000 UNIT/ML VIAL SQ SCH ×3 (06:08→20:49)
[2017-08-30 06:57] LABS: BUN/Creatinine Ratio 13 (6-26); Blood Urea Nitrogen 11 mg/dL (8-23); Calcium 8.5 mg/dL (8.6-10.3); Carbon Dioxide 21 mEq/L (23-29); Chloride 109 mEq/L (98-107); Glucose 104 mg/dL (70-105); Osmolality,Calculated 288 (280-300); Potassium 3.5 mEq/L (3.5-5.1); Sodium 139 mEq/L (136-145); eGFR For African Americans > 60 (> 60); eGFR For Non-African Americans > 60 (> 60)
[2017-08-30] MEDS: Cyanocobalamin (B-12) 1,000 MCG TABLET PO SCH (08:53)
[2017-08-30] MEDS: cefTRIAXone 2,000 MG in Water for inj. (sterile) 20 ML 20 ML IVP SCH (17:27)
[2017-08-30] MEDS: Levofloxacin 750 MG/150 ML 750 MG/150 ML BAG IVPB SCH (17:31)
--- NOTE | 2017-08-30 19:22 | Internal Med Progress Note ---
Date of Encounter: 08/30/17 Time of Encounter: 09:55 - Assessment and plan (1) Community acquired pneumonia Current Visit: Yes Status: Acute Assessment and plan: Pt states that he continues to feel better. He is on room air now. Patient has been afebrile for almost 24 hours. Sepsis has resolved, pt has no leukocytosis or tachycardia. Respiratory infectious panel negative. Will deescalate antibiotics to po Levaquin, continue bronchodilators. Continue telemetry Chest X-Ray 08/26/17 16:29 IMPRESSION: Right lower lobe pneumonia. Follow-up imaging is recommended after treatment to ensure resolution. D/ / Yohannes Sanchez MD / Yohannes Sanchez MD Interpreting Provider: Yohannes Sanchez MD Qualifiers: Laterality: right Lung location: lower lobe of lung Qualified Code(s): J18.1 - Lobar pneumonia, unspecified organism (2) DVT prophylaxis Current Visit: Yes Status: Acute Assessment and plan: Heparin subcutaneous BID. Pt has been ambulatory. (3) Hyponatremia Current Visit: Yes Status: Resolved Assessment and plan: Resolved. Continue to monitor (4) Sepsis Current Visit: Yes Status: Resolved Assessment and plan: Resolved. No leukocytosis, tachycardia, or hypotension. Pt has been afebrile for almost 24 hours. Qualifiers: Sepsis type: sepsis due to unspecified organism Qualified Code(s): A41.9 - Sepsis, unspecified organism (5) RONALD (acute kidney injury) Current Visit: Yes Status: Resolved Assessment and plan: Renal function remains WNL. Resolved (6) Elevated troponin Current Visit: Yes Status: Resolved Assessment and plan: Resolved. Flat and adynamic elevation in the setting of sepsis and pneumonia. - Time Spent With Patient less than 15 minutes - Subjective Interval history: Pt was seen and assessed at bedside at 0955. He states that he is starting to feel some better and is eating better. He reports feeling very tired and states that he is stiff and tired from lying around. He denies any headache or chest pain, shortness of breath. He denies diaphoresis, rigors, chills or fever. Pt and I ambulated in the hallway, he did well. I encouraged him to walk more throughout the day. - Constitutional Vitals: Temp Pulse Resp BP Pulse Ox 98.1 F 89 17 140/83 94 08/30/17 19:06 08/30/17 19:06 08/30/17 19:06 08/30/17 19:06 08/30/17 19:06 General appearance: Present: cooperative, mild distress, A&O X 3, pleasant, no acute distress, answers questions appropriately - Head Head exam: Present: atraumatic, normal inspection, normocephalic - Eye Eye exam: Present: normal appearance, conjuntiva pink, sclera anicteric - Neck Neck exam general surgery: Present: normal inspection, supple, trachea midline. Absent: lymphadenopathy, tenderness - Respiratory Respiratory exam: Present: CTAB. Absent: accessory muscle use, rales, rhonchi, wheezes - Cardiovascular Cardiovascular exam: Present: RRR, +S1, +S2. Absent: diastolic murmur, gallop, rubs, systolic murmur - GI/Abdominal GI/Abdominal exam: Present: normal bowel sounds, soft. Absent: distended, hepatomegaly, tenderness - Extremities Exam Extremities exam: Present: normal capillary refill, normal inspection, warm, radial pulses palpable and symmetrical. Absent: calf tenderness, cyanotic, pedal edema, tenderness - Neurological Exam Neurological exam: Present: alert, oriented X3, no focal deficits. Absent: altered, facial droop, speech deficit - Skin Skin exam: Present: dry, intact, normal color, warm. Absent: rash Internal Medicine: Result - Labs CBC & Chem 7: 08/30/17 03:22 08/30/17 03:22 Labs: Short CBC 08/30/17 Range/Units 03:22 WBC 9.2 (4.3-11.1) K/mcL Hgb 10.8 L (12.9-16.9) g/dL Hct 32.2 L (37.5-50.1) % Plt Count 210 (140-400) K/mcL Neutrophils # 5.5 (1.6-8.9) K/mcL BMP 08/30/17 03:22 Sodium 139 Potassium 3.5 Chloride 109 H Carbon Dioxide 21 L BUN 11 Creatinine 0.88 Glucose 104 Calcium 8.5 L - ABG Interpretation ABG results: PT/INR, D-dimer PT 12.2 Seconds (9.4-12.1) H 08/27/17 04:42 Consult Discharge Plan - Plan Referrals: Yanna Sommer MD [Primary Care Provider] - 09/06/17 3:00 pm
[2017-08-31] MEDS: Ipratropium/Albuterol Neb 3 ML IH SCH ×3 (03:31→11:14)
[2017-08-31] MEDS: Levalbuterol Neb 1.25 MG/3 ML IH SCH ×2 (03:46→08:10)
[2017-08-31 05:05] LABS: Basophils % 0.3 %; Eosinophils % 3.1 %; Hemoglobin 11.1 g/dL (12.9-16.9); Immature Granulocytes % 2.1 % (0-4); Lymphocytes % 26.8 %; Mean Corpuscular HGB Conc 33.6 g/dL (31.6-35.5); Mean Corpuscular Hemoglobin 31.4 pg (28.0-33.3); Mean Corpuscular Volume 93.2 fL (83.0-100.0); Mean Platelet Volume 11.2 fL (9.4-12.4); Platelet Count 275 K/mcL (140-400); Red Blood Count 3.54 M/mcL (4.19-5.50); Red Cell Distribution Width 13.6 % (11.5-14.5); Segmented Neutrophils % 60.7 %
[2017-08-31 05:06] LABS: Eosinophils # 0.3 K/mcL (0.0-0.6); Lymphocytes # 2.5 K/mcL (0.6-4.6); Monocytes # 0.7 K/mcL (0.0-1.3); Neutrophils # 5.7 K/mcL (1.6-8.9); Nucleated Red Blood Cells 0.2 /100 WBC (0)
[2017-08-31 05:16] LABS: BUN/Creatinine Ratio 11 (6-26); Blood Urea Nitrogen 9 mg/dL (8-23); Calcium 8.1 mg/dL (8.6-10.3); Carbon Dioxide 23 mEq/L (23-29); Chloride 108 mEq/L (98-107); Glucose 110 mg/dL (70-105); Osmolality,Calculated 285 (280-300); Potassium 3.3 mEq/L (3.5-5.1); Sodium 138 mEq/L (136-145); eGFR For African Americans > 60 (> 60); eGFR For Non-African Americans > 60 (> 60)
[2017-08-31] MEDS: 0.9 % Sodium Chloride 1,000 ML IVC SCH (05:38)
[2017-08-31] MEDS: *HR* Heparin 5,000 UNIT/ML VIAL SQ SCH (05:38)
[2017-08-31 07:19] VITALS: BP 136/76
[2017-08-31] MEDS: Cyanocobalamin (B-12) 1,000 MCG TABLET PO SCH (08:18)
[2017-08-31] MEDS ORDERED: levoFLOXacin 750 MG TABLET PO SCH (09:00)
--- NOTE | 2017-08-31 10:00 | Discharge Summary ---
- NOTES TO OUTPATIENT PROVIDER Notes to Outpatient Provider: Pt was admitted and treated for CAP, sepsis, RONALD. He is being discharged with po Levaquin. I have recommended that he not return to work until he is cleared by you. Pt also anemic during his visit, no BRBPR, hematuria. Iron and % sat were low, but ferritin was elevated. I did not start him on anything and recommend repeat H & H and further testing. Orders not resulted at time of discharge: Pending orders 08/30/17 13:36 Occult Blood,Stool [BF] Stat Date of Encounter: 08/31/17 Time of Encounter: 08:20 - Discharge Diagnosis (1) Community acquired pneumonia Priority: Primary Status: Acute Comments: Pt has improved significantly. Lungs are clear, he is no longer on supplemental 02. He states that he is feeling better and is ready to go home. No leukocytosis and he has remained afebrile. He will be sent home with po Levaquin. Qualifiers: Laterality: right Lung location: lower lobe of lung Qualified Code(s): J18.1 - Lobar pneumonia, unspecified organism (2) DVT prophylaxis Priority: Secondary Status: Acute Comments: Heparin (3) Hyponatremia Priority: Secondary Status: Resolved Comments: Resolved. (4) Sepsis Priority: Secondary Status: Resolved Comments: Resolved. Qualifiers: Sepsis type: sepsis due to unspecified organism Qualified Code(s): A41.9 - Sepsis, unspecified organism (5) RONALD (acute kidney injury) Priority: Secondary Status: Resolved Comments: Resolved. (6) Elevated troponin Priority: Secondary Status: Resolved Comments: Flat and adynamic elevation in the setting of sepsis, pna, RONALD. Pt continues to deny chest pain. Hospital course: Mr. Wang is a 66 year old male - Time Spent with Patient Total time spent providing and/or coordinating discharge services: - Discharge Medications Prescriptions: Cyanocobalamin (Vitamin B-12) [Vitamin B12] 1,000 mcg PO DAILY #10 tablet GuaiFENesin ER [Mucinex] 600 mg PO BID PRN #20 tbbp.12hr PRN Reason: Congestion levoFLOXacin [Levaquin] 750 mg PO DAILY #6 tablet Home Medications: Acetaminophen [Tylenol] 650 mg PO Q6H PRN 08/26/17 [History] Cyanocobalamin (Vitamin B-12) [Vitamin B12] 1,000 mcg PO DAILY #10 tablet [Rx] GuaiFENesin ER [Mucinex] 600 mg PO BID PRN #20 tbbp.12hr 08/31/17 [Rx] levoFLOXacin [Levaquin] 750 mg PO DAILY #6 tablet 08/31/17 [Rx] Allergies/Adverse Reactions: 3 Allergy/AdvReac Type Severity Reaction Status Date / Time No Known Allergies Allergy Verified 08/26/17 16:28 Date of admission: 08/29/17 17:01 Primary care physician: Yanna Sommer MD Discharging clinician: Amanda Rhodes Anticipated date of discharge: 08/31/17 - Constitutional Vitals: Temp Pulse Resp BP Pulse Ox 98.5 F 81 16 136/76 95 08/31/17 07:16 08/31/17 07:16 08/31/17 07:33 08/31/17 07:16 08/31/17 08:15 General appearance: Present: cooperative, A&O X 3, pleasant, no acute distress, answers questions appropriately - Head Head exam: Present: atraumatic, normal inspection, normocephalic - Eye Eye exam: Present: conjuntiva pink, sclera anicteric - Neck Neck exam general surgery: Present: supple, trachea midline. Absent: lymphadenopathy - Respiratory Respiratory exam: Present: CTAB. Absent: accessory muscle use, chest wall tenderness, rales, respiratory distress, rhonchi, wheezes - Cardiovascular Cardiovascular exam: Present: RRR, +S1, +S2. Absent: diastolic murmur, gallop, rubs, systolic murmur - GI/Abdominal GI/Abdominal exam: Present: normal bowel sounds, soft. Absent: distended, hepatomegaly, tenderness - Extremities Exam Extremities exam: Present: normal capillary refill, normal inspection, warm, radial pulses palpable and symmetrical. Absent: calf tenderness, cyanotic, pedal edema, tenderness - Neurological Exam Neurological exam: Present: alert, oriented X3, no focal deficits. Absent: facial droop, speech deficit - Skin Skin exam: Present: dry, intact, normal color, warm. Absent: rash - Patient Status Disposition: Home, Self-Care Condition: Good Functional capacity at discharge: independent ambulation Overall status at discharge: patient is progressing back to baseline - Discharge Instructions Instructions: Levofloxacin (By mouth), Pneumonia (DC) Follow Up With: Yanna Sommer MD [Primary Care Provider] - 09/06/17 3:00 pm Forms: Work/School Release Additional Instructions: Please see your PCP as scheduled on 09/06. You may return to work when cleared by PCP. Take your medications as directed, your prescriptions have been called into [facility] Return to the ER as needed for any other problems or concerns. Return to your normal diet and activities as tolerated. - Diet and Activity Activity: increase activity as tolerated, return to work once cleared by your PCP/specialist Diet: advance to your usual diet
== END 2017-08-31 12:04 | disposition home or self-care (01) | DRG 871 ==
LOC: 3BNU 16:21 → EMEROO 16:21 → 3BNU 19:56
PROVIDERS: ADMIT Internal Medicine; ATTEND Registered Nurse

== ENCOUNTER 2020-05-10 14:26 | Inpatient (IN) ==
[2020-05-10 16:07] LABS: Hematocrit 43.2 % (37.5-50.1); Hemoglobin 13.5 g/dL (12.9-16.9); Immature Granulocytes % 0.2 % (0-4); Lymphocytes % 11.8 %; Mean Corpuscular HGB Conc 31.3 g/dL (31.6-35.5); Mean Corpuscular Volume 92.9 fL (83.0-100.0); Platelet Count 193 K/mcL (140-400); Red Blood Count 4.65 M/mcL (4.19-5.50); Red Cell Distribution Width 14.3 % (11.5-14.5); Segmented Neutrophils % 82.4 %; White Blood Count 8.4 K/mcL (4.3-11.1)
[2020-05-10 16:08] LABS: Basophils % 0.2 %; Monocytes # 0.5 K/mcL (0.0-1.3); Monocytes % 5.4 %; Neutrophils # 6.9 K/mcL (1.6-8.9)
[2020-05-10 16:26] LABS: BUN/Creatinine Ratio 12 (6-26); Blood Urea Nitrogen 16 mg/dL (8-23); Calcium 8.4 mg/dL (8.6-10.3); Carbon Dioxide 22 mEq/L (23-29); Chloride 101 mEq/L (98-107); Glucose 98 mg/dL (70-105); Osmolality,Calculated 279 (280-300); Potassium 4.2 mEq/L (3.5-5.1); Sodium 134 mEq/L (136-145); eGFR For African Americans > 60 (> 60); eGFR For Non-African Americans 54 (> 60)
[2020-05-10 19:49] LABS: Adenovirus Not Detected (Not Detect); Bordetella Pertussis Not Detected (Not Detect); Chlamydophila pneumoniae Not Detected (Not Detect); Coronavirus 229E Not Detected (Not Detect); Coronavirus HKU1 Not Detected (Not Detect); Coronavirus NL63 Not Detected (Not Detect); Coronavirus OC43 Not Detected (Not Detect); Human Metapneumovirus Not Detected (Not Detect); Human Rhinovirus/Enterovirus Not Detected (Not Detect); Influenza A Subtype 2009 H1 Not Detected (Not Detect); Influenza B Not Detected (Not Detect); Mycoplasma pneumoniae Not Detected (Not Detect); Parainfluenza Virus 1 Not Detected (Not Detect); Parainfluenza Virus 2 Not Detected (Not Detect); Parainfluenza Virus 3 Not Detected (Not Detect); Parainfluenza Virus 4 Not Detected (Not Detect); Respiratory Syncytial Virus Not Detected (Not Detect)
[2020-05-10 19:52] LABS: SARS-CoV-2 DETECTED (Not Detect)
[2020-05-10] MEDS ORDERED: Naloxone 0.4 MG/ML INJ IVP PRN (21:34)
[2020-05-10] MEDS ORDERED: Ondansetron 4 MG/2 ML VIAL IVP PRN (21:34)
[2020-05-10] MEDS ORDERED: Acetaminophen 325 MG TABLET PO PRN (21:34)
[2020-05-10] MEDS ORDERED: Furosemide 40 MG/4 ML VIAL IVP ONE (23:29)
[2020-05-10] MEDS ORDERED: Ipratropium 1 PUFF INHALER IH PRN (23:55)
[2020-05-11] MEDS: *HR* Enoxaparin 40 MG/0.4 ML SYRINGE SQ SCH (05:36)
[2020-05-11] MEDS: Dexamethasone Sodium Phos/PF 10 MG/ML VIAL IVP SCH (08:03)
[2020-05-11] MEDS: cefTRIAXone 2,000 MG in Water for inj. (sterile) 20 ML IVP SCH (16:16)
[2020-05-11] MEDS: Azithromycin 500 MG in 0.9 % Sodium Chloride 250 ML IVPB SCH (16:17)
[2020-05-11 16:33] LABS: Hematocrit 41.9 % (37.5-50.1); Hemoglobin 13.4 g/dL (12.9-16.9); Immature Granulocytes % 0.2 % (0-4); Lymphocytes # 0.6 K/mcL (0.6-4.6); Lymphocytes % 12.3 %; Mean Corpuscular Hemoglobin 29.6 pg (28.0-33.3); Mean Corpuscular Volume 92.7 fL (83.0-100.0); Monocytes # 0.1 K/mcL (0.0-1.3); Monocytes % 1.6 %; Neutrophils # 4.2 K/mcL (1.6-8.9); Platelet Count 175 K/mcL (140-400); Red Blood Count 4.52 M/mcL (4.19-5.50); Red Cell Distribution Width 14.3 % (11.5-14.5); Segmented Neutrophils % 85.9 %; White Blood Count 4.9 K/mcL (4.3-11.1)
[2020-05-11 16:57] LABS: Alanine Aminotransferase 16 Units/L (7-52); Albumin 3.7 g/dL (3.5-5.7); Albumin/Globulin Ratio 1.2 (1.1-2.2); Alkaline Phosphatase 72 Units/L (34-104); Aspartate Amino Transferase 36 Units/L (13-39); BUN/Creatinine Ratio 21 (6-26); Bilirubin,Total 0.4 mg/dL (0.3-1.0); Blood Urea Nitrogen 28 mg/dL (8-23); C-Reactive Protein 139 mg/L (Less than 10); Carbon Dioxide 22 mEq/L (23-29); Chloride 101 mEq/L (98-107); Creatine Kinase 221 Units/L (30-223); Globulin 3.2 g/dL (2.4-3.5); Glucose 236 mg/dL (70-105); Lactate Dehydrogenase 269 Units/L (140-271); Magnesium 2.2 mg/dL (1.6-2.6); Osmolality,Calculated 287 (280-300); Phosphorous 3.5 mg/dL (2.7-4.5); Potassium 4.2 mEq/L (3.5-5.1); Sodium 132 mEq/L (136-145); Total Protein 6.9 g/dL (6.4-8.9); eGFR For African Americans > 60 (> 60); eGFR For Non-African Americans 52 (> 60)
[2020-05-11 16:59] LABS: INR 1.2; Prothrombin Time 13.4 Seconds (9.4-12.1)
[2020-05-11 17:11] LABS: Ferritin 125 ng/mL (20-250)
[2020-05-12] MEDS: *HR* Enoxaparin 40 MG/0.4 ML SYRINGE SQ SCH (04:56)
[2020-05-12] MEDS: Dexamethasone Sodium Phos/PF 10 MG/ML VIAL IVP SCH (09:42)
[2020-05-12] MEDS: Azithromycin 500 MG in 0.9 % Sodium Chloride 250 ML IVPB SCH (17:20)
[2020-05-12] MEDS: cefTRIAXone 2,000 MG in Water for inj. (sterile) 20 ML IVP SCH (17:20)
[2020-05-13] MEDS: *HR* Enoxaparin 40 MG/0.4 ML SYRINGE SQ SCH (05:53)
[2020-05-13] MEDS: Dexamethasone Sodium Phos/PF 10 MG/ML VIAL IVP SCH (08:18)
[2020-05-13 10:46] LABS: Hematocrit 45.9 % (37.5-50.1); Hemoglobin 14.4 g/dL (12.9-16.9); Mean Corpuscular HGB Conc 31.4 g/dL (31.6-35.5); Mean Corpuscular Hemoglobin 29.1 pg (28.0-33.3); Mean Corpuscular Volume 92.9 fL (83.0-100.0); Platelet Count 176 K/mcL (140-400); Red Blood Count 4.94 M/mcL (4.19-5.50); Red Cell Distribution Width 14.2 % (11.5-14.5); White Blood Count 7.2 K/mcL (4.3-11.1)
[2020-05-13 11:02] LABS: BUN/Creatinine Ratio 15 (6-26); Blood Urea Nitrogen 19 mg/dL (8-23); Calcium 8.3 mg/dL (8.6-10.3); Carbon Dioxide 23 mEq/L (23-29); Chloride 101 mEq/L (98-107); Glucose 116 mg/dL (70-105); Osmolality,Calculated 279 (280-300); Potassium 3.8 mEq/L (3.5-5.1); Sodium 133 mEq/L (136-145); eGFR For African Americans > 60 (> 60); eGFR For Non-African Americans 57 (> 60)
[2020-05-13] MEDS: Furosemide 20 MG/2 ML VIAL IVP SCH (12:41)
[2020-05-13] MEDS: Azithromycin 500 MG in 0.9 % Sodium Chloride 250 ML IVPB SCH (16:13)
[2020-05-13] MEDS: cefTRIAXone 2,000 MG in Water for inj. (sterile) 20 ML IVP SCH (16:13)
[2020-05-14] MEDS: *HR* Enoxaparin 40 MG/0.4 ML SYRINGE SQ SCH (05:42)
[2020-05-14] MEDS: Dexamethasone Sodium Phos/PF 10 MG/ML VIAL IVP SCH (08:42)
[2020-05-14] MEDS: Furosemide 20 MG/2 ML VIAL IVP SCH (08:43)
[2020-05-14 10:18] LABS: BUN/Creatinine Ratio 17 (6-26); Blood Urea Nitrogen 21 mg/dL (8-23); Calcium 8.7 mg/dL (8.6-10.3); Carbon Dioxide 26 mEq/L (23-29); Chloride 100 mEq/L (98-107); Glucose 101 mg/dL (70-105); Osmolality,Calculated 283 (280-300); Potassium 4.4 mEq/L (3.5-5.1); Sodium 135 mEq/L (136-145); eGFR For African Americans > 60 (> 60); eGFR For Non-African Americans 57 (> 60)
[2020-05-14 10:43] LABS: Hematocrit 44.7 % (37.5-50.1); Hemoglobin 14.4 g/dL (12.9-16.9); Mean Corpuscular HGB Conc 32.2 g/dL (31.6-35.5); Mean Corpuscular Hemoglobin 30.3 pg (28.0-33.3); Mean Corpuscular Volume 93.9 fL (83.0-100.0); Mean Platelet Volume 11.4 fL (9.4-12.4); Platelet Count 176 K/mcL (140-400); Red Blood Count 4.76 M/mcL (4.19-5.50); Red Cell Distribution Width 14.1 % (11.5-14.5)
[2020-05-14] MEDS: Ipratropium 1 PUFF INHALER IH SCH ×2 (10:47→15:44)
[2020-05-14 11:22] VITALS: BP 103/60
[2020-05-14] MEDS: cefTRIAXone 2,000 MG in Water for inj. (sterile) 20 ML IVP SCH (16:40)
[2020-05-14] MEDS: Azithromycin 500 MG in 0.9 % Sodium Chloride 250 ML IVPB SCH (16:41)
== END 2020-05-14 17:37 | disposition home or self-care (01) | DRG 177 ==
LOC: CDU 14:26 → EMEROOARM 14:26 → SUATTDRO 20:47 → CDU 21:45
PROVIDERS: ADMIT Family Medicine; ATTEND Internal Medicine